=== PATIENT | male | born 1970 | race Caucasian/White ===

== ENCOUNTER → 2021-11-27 10:10 | Outpatient (CLI) | payer OTHER, SELFPAY ==
[2021-11-27 12:50] LABS: Add Manual Diff / Slide Review NO; Basophils Absolute Auto 0 /uL (0-100); Basophils Percent Auto 0.5 % (0-2); Eosinophils Absolute Auto 200 /uL (0-450); Eosinophils Percent Auto 2.6 % (2-4); Hematocrit 36.7 % (41-53); Hemoglobin 12.3 g/dL (13.5-17.5); Lymphocytes Absolute Auto 1800 /uL (1100-4500); Lymphocytes Percent Auto 19.8 % (25-40); Mean Corpuscular HGB Conc 33.4 % (30-36); Mean Corpuscular Hemoglobin 27.7 PG (26-34); Mean Corpuscular Volume 82.8 fL (80-100); Monocytes Absolute Auto 700 /uL (0-900); Monocytes Percent Auto 7.9 % (3-14); Neutrophils Absolute Auto 6400 /uL (1500-7000); Neutrophils Percent Auto 69.2 % (50-75); Platelet Count 342 X10^3/uL (150-400); Red Blood Cell Count 4.43 X10^6/uL (4.5-5.9); White Blood Cell Count 9.3 X10^3/uL (4.5-11.0)
[2021-11-27 13:11] LABS: Erythrocyte Sedimentation Rate 71 MM/HR (0-15)
[2021-11-27 13:20] LABS: HEMOLYSIS < 15 (0-50); Iron 44 ug/dL (49-181)
[2021-11-27 13:25] LABS: Alanine Aminotransferase 12 IU/L (<50); Aspartate Aminotransferase 20 IU/L (17-59); C-Reactive Protein Quant 3.2 mg/dL (<1.0); Phosphorous 3.6 mg/dL (2.5-4.5)
[2021-11-27 13:30] LABS: Percent Iron Saturation 15 % (20-50); Total Iron Binding Capacity 298 ug/dL (261-462); Transferrin 234 mg/dL (206-381)
[2021-11-27 13:50] LABS: Ferritin 62 ng/mL (18-464)
== END ==
PROVIDERS: PCP Family Medicine; Referring Provider Family Medicine; Visit Provider Family Medicine
DX: M11.261 Other chondrocalcinosis, right knee (principal); M89.49 Other hypertrophic osteoarthropathy, multiple sites; Z79.899 Other long term (current) drug therapy
CPT/HCPCS: 36415; 82728; 83540; 83550; 84100; 84450; 84460; 85025; 85651; 86140

== ENCOUNTER → 2023-08-25 12:48 | Outpatient (CLI) | payer OTHER, SELFPAY ==
--- NOTE | 2023-08-25 12:50 | DI.MRI.S_ITS ---
PROCEDURE: MR SHOULDER LT WO CON INDICATIONS: left shoulder pain TECHNIQUE: Noncontrast oblique coronal T2 fast spin echo with fat saturation, oblique sagittal T1 spin echo and T2 fast spin echo with fat saturation, axial T1 spin echo and T2 fast spin echo with fat saturation through the shoulder. COMPARISON: None. FINDINGS: Image quality: Excellent. Rotator cuff: Moderate T2 signal elevation diffusely throughout the supraspinatus and infraspinatus tendons at the humeral insertion sites extending the musculotendinous junctions, indicating tendinopathy. Superimposed low-grade and moderate grade tearing of the anterior, mid, and posterior supraspinatus as well as the mid and anterior infraspinatus tendon at the humeral insertion site extending the musculotendinous junction. Subscapularis and teres minor tendons are intact. No rotator cuff atrophy. Bones and bursae: No bone marrow contusions nor acute fractures. There is indentation of the posterolateral humeral head. Mild glenohumeral and acromioclavicular joint degeneration. The acromion demonstrates conventional anatomy, without an os acromiale. No pathologic subacromial-subdeltoid or subcoracoid bursal fluid is present. Capsule and soft tissues: Labrum is grossly unremarkable The long head of the biceps tendon demonstrates normal location and low-grade intrasubstance tearing. The rotator interval appears normal, without fibrosis. The coracohumeral ligament is normal in thickness. IMPRESSION: 1. Acromioclavicular and glenohumeral joint osteoarthritis. 2. Moderate grade tearing of the supraspinatus and infraspinatus tendons. 3. 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 4. Partial thickness biceps tendon tear. Dictated by: Cynthia Best M.D. on 08/25/2023 at 13:50 Approved by: Cynthia Best M.D. on 08/25/2023 at 13:52
--- NOTE | 2023-08-25 12:50 | DI.MRI.S_ITS ---
PROCEDURE: MR ABDOMEN WO/W CON INDICATIONS: hereditary leiomyomatosis and renal cell cancer TECHNIQUE: Coronal HASTE through abdomen and pelvis; axial 2D FLASH in- and [id number] (with and without fat saturation), and breath-hold T2 FSE from the hepatic dome to the bottom of the kidneys. Coronal HASTE MR urogram of kidneys and bladder. Dynamic coronal VIBE during IV gadolinium administration; postgadolinium axial VIBE or 2D FLASH with fat saturation from the hepatic dome through the kidneys. COMPARISON: None. FINDINGS: Image quality: Excellent. Genitourinary system: No hydronephrosis. No renal cystic lesion which requires follow up. No solid mass. Lung bases and heart: Unremarkable. Liver: No solid mass. Hepatic cysts. Gallbladder and biliary tree: Cholelithiasis. No biliary dilation. Spleen: No splenomegaly. Pancreas: No pancreatic ductal dilation. Adrenals: No adrenal nodule. Bowel and peritoneum: No bowel distension. No pathologic free fluid. Lymph nodes: No central or retroperitoneal adenopathy. Vessels: No infrarenal aortic aneurysm. Bones: No aggressive osseous abnormality. Other: No significant ventral hernia. IMPRESSION: No solid renal mass. Dictated by: Wei Rico M.D. on 08/25/2023 at 15:29 Approved by: Wei Rico M.D. on 08/25/2023 at 15:32
== END ==
PROVIDERS: PCP Family Medicine; Referring Provider Family Medicine; Visit Provider Family Medicine
DX: M25.512 Pain in left shoulder (principal); G89.29 Other chronic pain; M19.012 Primary osteoarthritis, left shoulder; M75.112 Incomplete rotator cuff tear or rupture of left shoulder, not specified as traumatic; M21.822 Other specified acquired deformities of left upper arm; S46.212A Strain of muscle, fascia and tendon of other parts of biceps, left arm, initial encounter; Z15.09 Genetic susceptibility to other malignant neoplasm; Z91.89 Other specified personal risk factors, not elsewhere classified
CPT/HCPCS: 73221; 74183